=== PATIENT | female | born 1970 ===

== ENCOUNTER 2018-09-20 07:35 | Day surgery (SDC) | payer BC ==
[2018-09-12 08:44] VITALS: BMI 26.1
[2018-09-20 08:34] VITALS: RESP 18; O2SAT 100
[2018-09-20] MEDS ORDERED: Midazolam 2 MG/2 ML VIAL ONE (09:30)
[2018-09-20] MEDS ORDERED: Propofol 10 mg/ml Inj (20 ML) ONE (09:30)
[2018-09-20] MEDS ORDERED: Silver Nitrate Topical - Stick ONE (09:54)
[2018-09-20] MEDS ORDERED: Lidocaine 4% (Laryng-O-Jet) Kit MM ONE (09:56)
[2018-09-20] MEDS ORDERED: Lactated Ringer's 1,000 ML IV ONE (10:02)
[2018-09-20] MEDS ORDERED: HYDROmorphone 0.5 mg/0.5 ml ISec IVP PRN (10:29)
[2018-09-20 11:29] VITALS: TEMP 97.8
[2018-09-20 12:20] VITALS: BP 102/65; PULSE 79
--- NOTE | 2018-09-20 20:55 | OP ---
PROCEDURE DATE: 09/20/2018 PREOPERATIVE DIAGNOSES: Abnormal uterine bleeding, atypical granular cell leiomyoma. POSTOPERATIVE DIAGNOSES: Abnormal uterine bleeding, atypical granular cell leiomyoma. PROCEDURE PERFORMED: Hysteroscopic myomectomy, dilation and curettage, colposcopy with cervical biopsy. SURGEON: Ashlee Bone MD ANESTHESIA: General LMA. ESTIMATED BLOOD LOSS: 5 mL. BLOOD PRODUCTS: None. COMPLICATIONS: None. SPECIMENS: Endocervical curettings, endometrial curettings, submucosal myoma with suspected fragment that was vascular, also cervical biopsy at 5:00 p.m. OPERATIVE FINDINGS: Colposcopy performed with biopsy at 5:00 p.m. Endocervical curettage obtained. Good hemostasis noted. Hysteroscopy, bilateral ostia visualized. Vascular type endometrium noted anteriorly along the myoma type lesion which was carefully resected using MyoSure device and removed, good hemostasis noted. DESCRIPTION OF PROCEDURE: The patient was taken to the operating room, where she was given general anesthesia. Once it was found to be adequate, she was placed on the operating table in dorsal supine position with legs supported using stirrups. The patient was then prepped and draped in the usual sterile fashion. A time-out confirmed correct patient and correct procedure. Bimanual exam was performed with the operative findings mentioned as above. Lugol solution was applied to the cervix and cervical biopsy was performed at 5:00 p.m. Endocervical curettings were obtained with a curette. The uterus was then sounded to 7 cm, following which the cervix was sequentially dilated to allow for introduction of the 5 mm hysteroscope under direct visualization utilizing normal saline as distention media. Myoma type lesion was noted which was carefully resected using MyoSure device with vascular type areas noted which was carefully resected from that area and sent for specimen. All instruments were removed. There was good hemostasis noted at the tenaculum puncture site, which was placed on the anterior lip of the cervix prior to the introduction of the hysteroscopy . Good hemostasis at the cervical biopsy site. All instruments were removed. There was good hemostasis noted. At end of the procedure, all needle, sponge, and instrument counts were noted and correct x2. The patient tolerated the procedure well and was transferred to the recovery room in stable condition. Ashlee Bone MD [facility] # [id number]
== END 2018-09-20 12:20 | disposition home or self-care (01) ==
LOC: C.SDS 07:35
PROVIDERS: ATTEND Obstetrics & Gynecology
DX: D25.9 Leiomyoma of uterus, unspecified (principal); N72 Inflammatory disease of cervix uteri; N93.9 Abnormal uterine and vaginal bleeding, unspecified
CPT/HCPCS: 58561; 88305; J1100; J1170; J2250; J2405; J2704; J3010; J7120